=== PATIENT | female | born 1960 | race Asian ===

== ENCOUNTER 2018-10-31 18:47 | Inpatient (IN) | payer OTHER ==
[~2018-10-31] VITALS: Ht 162.6 cm; Wt 36.7 kg
[2018-10-31 19:21] VITALS: BP_SYST 95
[2018-10-31] MEDS ORDERED: NACL 0.9% 1,000 ML IV SCH (20:22)
[2018-10-31 20:59] LABS: BASOPHILS % (AUTO) 0.7 % (0.0-2.0); EOSINOPHILS # (AUTO) 0.1 K/uL (0.0-0.4); EOSINOPHILS % (AUTO) 1.3 % (0.0-4.0); HEMATOCRIT 29.5 % (36-48); HEMOGLOBIN 9.8 g/dL (12.0-16.0); LYMPHOCYTES # (AUTO) 1.2 K/uL (1.0-5.5); LYMPHOCYTES % (AUTO) 26.9 % (20.5-51.5); MEAN CORPUSCULAR HEMOGLOBIN 29 pg (27-31); MEAN CORPUSCULAR HGB CONC 33 % (32-36); MEAN CORPUSCULAR VOLUME 88 fL (79.0-98.0); MONOCYTES # (AUTO) 0.5 K/uL (0.0-1.0); MONOCYTES % (AUTO) 10.9 % (1.7-9.3); NEUTROPHILS # (AUTO) 2.6 K/uL (1.8-7.7); NEUTROPHILS % (AUTO) 60.2 % (40.0-70.0); PLATELET COUNT (AUTO) 422 K/uL (130-430); RED BLOOD CELL COUNT(AUTO) 3.34 MIL/uL (4.2-6.2); RED CELL DISTRIBUTION WIDTH 16.6 % (9.0-15.0); WHITE BLOOD COUNT (AUTO) 4.3 K/uL (4.8-10.8)
[2018-10-31 21:36] LABS: CALCIUM 8.8 mg/dL (8.4-11.0); CREATININE 0.68 mg/dL (0.55-1.30); POTASSIUM 3.7 mmol/L (3.5-5.1)
[2018-10-31 21:44] LABS: ALBUMIN 3.1 g/dL (3.4-4.8); TOTAL BILIRUBIN 0.2 mg/dL (0.0-1.0)
[2018-10-31] MEDS ORDERED: NIFE30TA84 PO (23:07)
[2018-10-31] MEDS ORDERED: GABA-529 PO (23:07)
[2018-10-31] MEDS ORDERED: OMEP-268 PO (23:07)
[2018-11-01 00:39] VITALS: BP_SYST 111
[2018-11-01] MEDS: LR 1,000 ML IV SCH ×2 (01:23→20:46)
[2018-11-01 08:20] VITALS: BP_SYST 98
[2018-11-01 13:08] VITALS: BP_SYST 102
[2018-11-01] MEDS ORDERED: MEGESTROL ACETATE 400 MG/10 ML UDC PO ONE (13:15)
[2018-11-01 16:17] VITALS: BP_SYST 105
[2018-11-01 20:44] VITALS: BP_SYST 106
[2018-11-01] MEDS ORDERED: MIRTAZAPINE 15 MG TABLET PO SCH (21:00)
[2018-11-02 01:27] VITALS: BP_SYST 124
[2018-11-02] MEDS ORDERED: OMEPRAZOLE 20 MG CAPSULE.DR (PriLOSEC) PO SCH (07:00)
[2018-11-02 08:03] VITALS: BP_SYST 128
[2018-11-02] MEDS ORDERED: BARIUM SULFATE 135 ML SUSP.RECON (E-Z-HD) PO ONE (08:21)
[2018-11-02] MEDS ORDERED: GABAPENTIN 100 MG CAPSULE PO SCH (09:00)
[2018-11-02] MEDS ORDERED: MEGESTROL ACETATE 400 MG/10 ML UDC PO SCH (09:00)
[2018-11-02] MEDS ORDERED: NIFEDIPINE 30 MG TAB.ER.24 PO SCH (09:00)
[2018-11-02 12:08] VITALS: BP_SYST 139
[2018-11-02 12:22] VITALS: BP_SYST 139
[2018-11-02] MEDS ORDERED: MEGE40TA PO (12:30)
[2018-11-02] MEDS ORDERED: REM15 PO (12:31)
== END 2018-11-02 13:10 | disposition home or self-care (01) | DRG 346 ==
LOC: SED 18:47 → SMU 11-01 00:01
PROVIDERS: ADMIT Internal Medicine; ATTEND Internal Medicine
DX: M34.9 Systemic sclerosis, unspecified (principal); I95.9 Hypotension, unspecified; M32.9 Systemic lupus erythematosus, unspecified; E46 Unspecified protein-calorie malnutrition; I10 Essential (primary) hypertension; G89.4 Chronic pain syndrome; D63.8 Anemia in other chronic diseases classified elsewhere; R62.7 Adult failure to thrive; Z68.1 Body mass index [BMI] 19.9 or less, adult; Z79.899 Other long term (current) drug therapy
CPT/HCPCS: 36415; 74220-TC; 80053; 84484; 85025; 93005; 96360; 99285; J7030; J7120